=== PATIENT | female | born 1965 | race Caucasian/White ===

== ENCOUNTER → 2024-12-05 10:09 | Outpatient (REF) | payer BC, SELFPAY | LOC: RAD 10:09 | PROVIDERS: ATTENDING PHYSICIAN Physician Assistant; FAMILY PHYSICIAN Internal Medicine | DX: Z13.820 Encounter for screening for osteoporosis (principal); Z12.31 Encounter for screening mammogram for malignant neoplasm of breast | CPT/HCPCS: 77063; 77067; 77080 ==